=== PATIENT | male | born 1955 | race Caucasian/White ===

== ENCOUNTER 2024-03-12 21:50 | Emergency (ER) | payer MEDICARE, SELFPAY ==
[2024-03-12 21:54] VITALS: BP 172/78; PULSE 83; TEMP 36.6; O2SAT 98; BMI 38.9
--- NOTE | 2024-03-12 22:06 | ED_ITS ---
HPI HPI - General Adult General Chief complaint: Skin/Abscess/Foreign Body Stated complaint: Difficulty Swallowing Time Seen by Provider: 03/12/24 21:51 Source: patient Mode of arrival: walk-in History of Present Illness HPI narrative: 68-year-old male presents to the emergency department for inability to swallow. He believes he has a piece of brisket stuck in his esophagus. This started about 6:30 PM, 3 and half hours ago. He states he just cannot get it to go down and he cannot swallow anything. He has never had to go to the hospital because of this but he has had episodes where something would get caught but he has been able to get it down in the past. He has never had upper endoscopy. Related Data Home Medications ?Medication ?Instructions ?Recorded ?Confirmed atorvastatin 10 mg tablet 10 mg PO DAILY 03/12/24 03/12/24 clopidogrel 75 mg tablet 75 mg PO DAILY 03/12/24 03/12/24 dulaglutide 0.75 mg/0.5 mL 0.75 mg subcut .weekly 03/12/24 03/12/24 subcutaneous pen injector (Trulicity) insulin glargine 100 unit/mL (3 50 unit subcut DAILY 03/12/24 03/12/24 mL) subcutaneous pen (Basaglar KwikPen U-100 Insulin) insulin lispro 200 unit/mL (3 mL) 1 sliding scale dose subcut 03/12/24 03/12/24 subcutaneous pen (Humalog KwikPen USEASDIRECTD U-200 Insulin) metformin 500 mg tablet 500 mg PO BID 03/12/24 03/12/24 Allergies Allergy/AdvReac Type Severity Reaction Status Date / Time No Known Drug Allergies Allergy Verified 03/12/24 22:00 Opioid HPI Opioid Management Most Recent Opioid Data: No Data to Display Review of Systems ROS Narrative A ten point review of systems is negative except as noted above. Exam Narrative Exam Narrative: Nurses note and vital signs reviewed and patient is not hypoxic. General: The patient appears well and in no apparent distress. Emesis bag is in his hand. Skin: Warm, dry, no pallor noted. There is no rash noted. Head: Normocephalic, atraumatic Eye: Normal conjunctiva, no drainage Ears, Nose, Mouth, and Throat: oral mucosa is moist. Nares patent. Cardiovascular: Regular Rate and Rhythm Respiratory: Patient is in no distress, no accessory muscle use, lungs are clear to auscultation, no wheezing, rales or rhonchi Back: non-tender GI: Obese and nontender Musculoskeletal: The patient has no evidence of calf tenderness, no pitting edema, symmetrical pulses noted bilaterally Neurological: Awake and alert Psychiatric: Cooperative Constitutional Vital Signs, click to edit/add: Last Vital Signs Temp 97.9 F 03/12/24 21:54 Pulse 75 03/12/24 23:46 Resp 18 03/12/24 23:46 BP 169/70 H 03/12/24 23:46 Pulse Ox 98 03/12/24 23:46 O2 Del Method Room Air 03/12/24 23:46 Course Vital Signs Vital signs: Vital Signs Temperature 97.9 F 03/12/24 21:54 Pulse Rate 83 03/12/24 21:54 Respiratory Rate 18 03/12/24 21:54 Blood Pressure 172/78 H 03/12/24 21:54 Pulse Oximetry 98 03/12/24 21:54 Oxygen Delivery Method Room Air 03/12/24 21:54 Temperature 97.9 F 03/12/24 21:54 Pulse Rate 75 03/12/24 23:46 Respiratory Rate 18 03/12/24 23:46 Blood Pressure 169/70 H 03/12/24 23:46 Pulse Oximetry 98 03/12/24 23:46 Oxygen Delivery Method Room Air 03/12/24 23:46 Medical Decision Making MDM Narrative Medical decision making narrative: The patient presented with an esophageal food bolus impaction, beef brisket. He was given 2 rounds of IV medication, glucagon, nitroglycerin, and Reglan, and ultimately the fluid bolus passed and he was able to drink liquids without difficulty. He has an established it security administrator in [place] and he is going to call them in the morning for follow-up appointment. He was advised to eat no meat until seen and evaluated. Treatment diagnosis and follow-up were discussed with the patient and his . Differential Diagnosis Differential Diagnosis: Esophageal food bolus Discharge Plan Discharge Stand Alone Forms: Portal Instructions Chief Complaint: Skin/Abscess/Foreign Body Clinical Impression: Food impaction of esophagus Patient Disposition: Home, Self-Care Time of Disposition Decision: 23:49 Condition: Good Mode of Transportation: Private Vehicle Prescriptions / Home Meds: No Action atorvastatin 10 mg tablet 10 mg PO DAILY Trulicity 0.75 mg/0.5 mL pen injector 0.75 mg SUBCUT .weekly Rx Instructions: Wednesday metformin 500 mg tablet 500 mg PO BID clopidogrel 75 mg tablet 75 mg PO DAILY Humalog KwikPen Insulin 200 unit/mL (3 mL) insulin pen 1 sliding scale dose subcut USEASDIRECTD insulin glargine [Basaglar KwikPen U-100 Insulin] 100 unit/mL (3 mL) insulin pen 50 unit subcut DAILY Print Language: [place]errat[place] Instructions: Food Impaction (ED) Additional Instructions: Call your it security administrator in the morning for follow-up appointment. Do not eat meat. Chew all food well. Referrals: CHIQUITA STEPHENS [Primary Care Provider] - 1 week
--- NOTE | 2024-03-12 22:11 | PC.NURSE ---
Food Bolus. Was eating Brisket and has a food bolus. Can't swallow even saliva
[2024-03-12] MEDS: GLUCAGON 1 MG/ML VIAL IV ×2 (22:20→23:04)
[2024-03-12] MEDS: METOCLOPRAMIDE HCL 10 MG/2 ML VIAL IVP (22:20)
[2024-03-12] MEDS: NITROGLYCERIN 0.4 MG BOTTLE 0.400000000000000022 MG SL ×2 (22:20→23:04)
[2024-03-12] MEDS: LORAZEPAM 2 MG/ML VIAL 0.5 MG IV (23:04)
[2024-03-12 23:46] VITALS: BP 169/70; PULSE 75; O2SAT 98
== END 2024-03-13 00:10 | disposition home or self-care (01) ==
PROVIDERS: Emergency Provider Emergency Medicine; PCP Family Medicine
DX: T18.128A Food in esophagus causing other injury, initial encounter (principal); W44.F3XA Food entering into or through a natural orifice, initial encounter
CPT/HCPCS: 96374; 96375; 96376; 99284; J1610